=== PATIENT | female | born 1935 | race Caucasian/White ===

== ENCOUNTER 2017-03-31 20:24 | Observation (INO) | payer OTHER ==
[~2017-03-31] VITALS: Ht 160 cm; Wt 99.5 kg
[~2017-03-31 20:24] MED LIST: B-121000 MC2 PO; COUMADIN5 MG PO; COUMADIN7.5 MG PO; FOLIC ACID0.8 MG PO; LEVO-T125 MCG PO; MAGNESIUM400 M1 PO; MELATONIN5 M1 PO; NASAL ALLERGY16.9 ML BOTH NARES; NEURONTIN300 MG PO; SLEEP AID25 M2 PO; SOTALOL80 MG PO; TYLENOL EXTRA500 MG PO; VITAMIN D31000 UNI2 PO
[2017-03-31 21:17] LABS: HEMATOCRIT 41.4 % (36.0-46.0); MCH 28.7 PG (29.0-34.0); MCHC 31.9 G/DL (30.0-36.0); MEAN PLAT.VOLUME 10.6 uM^3 (9.5-12.4); PLATELET COUNT 210 K/uL (156-360); RBC DIS.WIDTH-CV 13.4 % (11.8-14.6); RBC DIS.WIDTH-SD 43.9 % (39-53); WHITE BLOOD COUNT 7.3 K/uL (4.1-10.2)
[2017-03-31 21:28] LABS: CHLORIDE 105 mEq/L (99-109); POTASSIUM 4.2 mEq/L (3.7-5.4); SODIUM 139 mEq/L (136-147)
[2017-03-31 21:30] LABS: GLUCOSE 109 mg/dL (70-99)
[2017-03-31 21:31] LABS: ANION GAP 10 MEQ/L (2-14)
[2017-03-31 21:34] LABS: GFR ESTIMATE (CALCULATED) 46 mL/min/
[2017-03-31 21:35] LABS: UREA NITROGEN (BUN) 19 mg/dL (9-23)
[2017-03-31 21:41] LABS: TROP-I INTERPRETATION NEGATIVE; TROPONIN-I < 0.01 ng/mL (0.0-0.30)
[2017-03-31 23:17] LABS: D-DIMER ELISA 0.22 mg/L FEU (< 0.57)
[2017-03-31] MEDS ORDERED: ELIQUIS5 MG PO (23:33)
[2017-03-31] MEDS ORDERED: CYMBALTA20 MG PO (23:35)
[2017-03-31] MEDS ORDERED: SOTALOL80 MG PO (23:35)
[2017-03-31] MEDS ORDERED: LEVOCETIRIZINE D5 MG PO (23:36)
[2017-03-31 23:44] LABS: PROTHROMBIN TIME 11.2 (9.2-11.2); PTT 29.6 (25-32)
[2017-03-31 23:45] LABS: INTER. NORMALIZED RATIO 1.1
[2017-04-01 01:17] VITALS: BP 145/69
[2017-04-01 03:24] LABS: HEMATOCRIT 40.1 % (36.0-46.0); MCH 29.4 PG (29.0-34.0); MCHC 32.9 G/DL (30.0-36.0); MCV 89.3 FL (83-99); MEAN PLAT.VOLUME 10.7 uM^3 (9.5-12.4); PLATELET COUNT 206 K/uL (156-360); RBC DIS.WIDTH-CV 13.2 % (11.8-14.6); RBC DIS.WIDTH-SD 43.5 % (39-53); RED BLOOD COUNT 4.49 M/uL (3.80-5.20); WHITE BLOOD COUNT 7.8 K/uL (4.1-10.2)
[2017-04-01 03:40] LABS: CHLORIDE 105 mEq/L (99-109); POTASSIUM 4.2 mEq/L (3.7-5.4); SODIUM 141 mEq/L (136-147)
[2017-04-01 03:42] LABS: GLUCOSE 98 mg/dL (70-99)
[2017-04-01 03:43] LABS: ANION GAP 11 MEQ/L (2-14)
[2017-04-01 03:44] LABS: TOTAL BILIRUBIN 0.4 mg/dL (0.0-1.0)
[2017-04-01 03:46] LABS: ALKALINE PHOSPHATASE 44 IU/L (3-129); GFR ESTIMATE (CALCULATED) 56 mL/min/; TROP-I INTERPRETATION NEGATIVE; TROPONIN-I < 0.01 ng/mL (0.0-0.30)
[2017-04-01 03:47] LABS: UREA NITROGEN (BUN) 19 mg/dL (9-23)
[2017-04-01 04:38] VITALS: BP 137/83
[2017-04-01 07:38] VITALS: BP 127/64
[2017-04-01 10:29] LABS: TROP-I INTERPRETATION NEGATIVE; TROPONIN-I < 0.01 ng/mL (0.0-0.30)
== END 2017-04-01 12:20 | disposition home or self-care (01) ==
LOC: EME 20:24 → EDOF 23:42 → 5WEST 23:42
PROVIDERS: Internal Medicine
DX: R07.89 Other chest pain (principal); Z79.01 Long term (current) use of anticoagulants; M79.7 Fibromyalgia; I10 Essential (primary) hypertension; E03.9 Hypothyroidism, unspecified; Z88.2 Allergy status to sulfonamides; I48.0 Paroxysmal atrial fibrillation; E78.5 Hyperlipidemia, unspecified; M32.9 Systemic lupus erythematosus, unspecified; G89.4 Chronic pain syndrome
CPT/HCPCS: 71020; 80048; 80053; 83880; 84484; 85027; 85379; 85610; 85730; 93005; 99281; 99285; G0378

== ENCOUNTER → 2017-10-29 | Outpatient (CLI) | payer OTHER ==
[~2017-10-29] MED LIST changes: +CYMBALTA20 MG PO; +ELIQUIS5 MG PO; +LEVOCETIRIZINE D5 MG PO
== END | disposition home or self-care (01) ==
LOC: NUC 09:00
DX: G20 Parkinson's disease (principal)
CPT/HCPCS: 78607; A9584